=== PATIENT | female | born 1955 | race Caucasian/White ===

== ENCOUNTER 2017-12-07 09:50 | Emergency (ER) | payer OTHER ==
[~2017-12-07] VITALS: Ht 157.5 cm; Wt 61.0 kg
[~2017-12-07 09:50] MED LIST: AMLODIPINE5 MG PO; CALCIUM + D600 MG PO; CLARITIN10 M1 PO; D31000 UNIT PO; HYZAAR1 TAB PO; OMEPRAZOLE20 MG PO; PROVENTIL HFA IN
[2017-12-07 10:39] LABS: INFLUENZA A NONE DETECTED (NONE DETECT); INFLUENZA B NONE DETECTED (NONE DETECT)
[2017-12-07] MEDS ORDERED: CHERATUSSIN PO (10:52)
[2017-12-07] MEDS ORDERED: PROAIR HFA108 MCG/AC PO (10:52)
[2017-12-07] MEDS ORDERED: ZPAK PO (10:52)
[2017-12-07] MEDS ORDERED: PREDNISONE50 MG PO (10:52)
[2017-12-07 11:00] VITALS: BP 164/100
== END 2017-12-07 11:00 | disposition home or self-care (01) | DRG 203 ==
LOC: ED 09:50
PROVIDERS: Family Medicine
DX: J20.9 Acute bronchitis, unspecified (principal); I10 Essential (primary) hypertension; J45.909 Unspecified asthma, uncomplicated; M06.9 Rheumatoid arthritis, unspecified; M54.30 Sciatica, unspecified side; M81.0 Age-related osteoporosis without current pathological fracture; R05 Cough; R07.9 Chest pain, unspecified; R52 Pain, unspecified

== ENCOUNTER 2019-07-15 17:03 | Observation (INO) | payer OTHER ==
[~2019-07-15] VITALS: Ht 157.5 cm; Wt 61.0 kg
[~2019-07-15 17:03] MED LIST changes: +CHERATUSSIN PO; +PREDNISONE50 MG PO; +PROAIR HFA108 MCG/AC PO; +ZPAK PO
--- NOTE | 2019-07-15 17:26 | NUR ---
PT TO ROOM WITH A STEADY GAIT. PT DRY HEAVING IN TRIAGE.
--- NOTE | 2019-07-15 17:51 | NUR ---
Pt. moved to rm #[id number] for higher level of care. Report given to Fatimah Ordonez.
--- NOTE | 2019-07-15 18:35 | NUR ---
IV ACCESS OBTAINED, LABS DRAWN CULTURES OBTAINED AND PT RESTING AT THIS TIME, CALL JD CORRALES AND INSTRUCTED TO CALL FOR ANY NEEDED ASSISTANCE. ALL MONITORING EQUIPMENT EXPLAINED PRIOR TO APPLICATION, ALL QUESTIONS ANSWERED
[2019-07-15 18:43] LABS: HEMATOCRIT 41.2 % (37.0-47.0); HEMOGLOBIN 13.9 g/dl (12.0-16.0); IMMATURE GRANULOCYTES 0.4 % (0.0-5.0); MEAN CELL VOLUME 88.2 fL CALC (80.0-100.0); MEAN CORPUSCULAR HGB 29.8 pG CALC (26.0-32.0); MEAN CORPUSCULAR HGB CONC 33.7 g/L CALC (32.0-36.0); NEUT# 8.3 thou/uL (2.00-7.15); RED BLOOD COUNT 4.67 mill/uL (4.20-5.60); RED CELL DISTRI WIDTH 12.3 % (11.5-15.5)
[2019-07-15 18:58] LABS: ALBUMIN 4.7 g/dL (3.2-5.0); BUN 11 mg/dL (8-23); BUN/CREATININE RATIO 18 (12-20 (CALC)); CARBON DIOXIDE 25 mmol/l (22-30); CHLORIDE 95 mmol/l (95-108); CREATININE 0.6 mg/dL (0.5-1.0); GFR > 60 ML/MIN (>=60 (CALC)); GFR FOR AFR.AMER. > 60 ML/MIN (>=60 (CALC)); SODIUM 137 mmol/l (137-146); TOTAL PROTEIN 8.4 g/dL (6.3-8.2)
[2019-07-15 19:06] LABS: ALKALINE PHOSPHATASE 118 u/l (38-126); ANION GAP 20 (6-22 (CALC)); BILIRUBIN, TOTAL 0.4 mg/dL (0.0-1.4); POTASSIUM 2.6 mmol/l (3.5-5.1); SGOT/AST 82 u/l (9-36)
--- NOTE | 2019-07-15 21:20 | NUR ---
PT TO BE HELD IN ER MED/SURG IS CAPPED.
--- NOTE | 2019-07-15 22:15 | NUR ---
CONTACTED [facility] REGARDING CONFLICT ON SEP.
--- NOTE | 2019-07-15 22:25 | NUR ---
PLACED IN HOSPITAL BED. GIVEN ICE CHIPS.
--- NOTE | 2019-07-16 04:30 | NUR ---
SLEEPING IN NAD.
--- NOTE | 2019-07-16 06:00 | NUR ---
AMBULATED TO WITH NO PROBLEMS.
[2019-07-16 07:06] LABS: BUN 9 mg/dL (8-23); BUN/CREATININE RATIO 19 (12-20 (CALC)); CARBON DIOXIDE 26 mmol/l (22-30); CHLORIDE 100 mmol/l (95-108); CREATININE 0.5 mg/dL (0.5-1.0); GFR > 60 ML/MIN (>=60 (CALC)); GFR FOR AFR.AMER. > 60 ML/MIN (>=60 (CALC)); MAGNESIUM 1.9 mg/dL (1.6-2.3); SODIUM 139 mmol/l (137-146)
[2019-07-16 07:12] LABS: ANION GAP 16 (6-22 (CALC)); POTASSIUM 3.2 mmol/l (3.5-5.1)
[2019-07-16 07:47] VITALS: BP 144/79
--- NOTE | 2019-07-16 08:29 | NUR ---
PT RESTING IN BED AM ASSESSMENT COMPLETED SEE INTERVENTIONS, SKIN WARM AND DRY 2 UNIT PRBC'S INFUSING W/O ICNIDENT, PT SHOWS NO S/S OF DISTRESS, CALL ARGUETA WITHIN REACH, WILL CONTINUE TO MONITOR.
[2019-07-16 08:52] VITALS: BP 144/79
--- NOTE | 2019-07-16 10:05 | NUR ---
AMBULATED TO BATHROOM WND BACK WITH STEADY GAIT, OFFERS NO NEW COMPLAINTS.
--- NOTE | 2019-07-16 11:13 | NUR ---
SBAR PRINTED TO FLOOR
--- NOTE | 2019-07-16 11:25 | NUR ---
IN TO SEE PATIENT PLAN OF CARE DISCUSSED INCLDUING D/C HOME TODAY
[2019-07-16] MEDS ORDERED: MEDDOSEPAK PO (11:34)
[2019-07-16] MEDS ORDERED: TAM75CAP PO (11:35)
[2019-07-16] MEDS ORDERED: ZITHROMAX250 MG PO (11:36)
[2019-07-16] MEDS ORDERED: ROBITUSSIN AC10 ML PO (11:37)
--- NOTE | 2019-07-16 12:27 | NUR ---
IV ACCESS REMOVED EARLIER D/C INSTRUCTIONS DISCUSSED, SCRIPT FOR ROBITUSSIN WITH CODEINE GIVEN TO PATIENT. DRESSING SELF AT [facility]
--- NOTE | 2019-07-16 12:39 | NUR ---
Discharge instructions given. Patient verbalizes understanding of same. Discharged in stable condition via Ambulatory to Home with family. All belongings sent with pt. SCRIPT AND D/C INSTRUCTIONS IN HAND.
== END 2019-07-16 12:39 | disposition home or self-care (01) | DRG 195 ==
LOC: ED 17:03 → ED-I 17:40 → ED 17:40 → ED-I 19:50 → ED 20:03 → ED-I 20:04
PROVIDERS: Family Medicine; ADMIT Internal Medicine; ATTEND Internal Medicine
DX: J10.1 Influenza due to other identified influenza virus with other respiratory manifestations (principal); I10 Essential (primary) hypertension; J45.909 Unspecified asthma, uncomplicated; M06.9 Rheumatoid arthritis, unspecified; M19.90 Unspecified osteoarthritis, unspecified site

== ENCOUNTER 2019-09-17 | Emergency (ER) | payer OTHER ==
[~2019-09-17] MED LIST changes: +MEDDOSEPAK PO; +ROBITUSSIN AC10 ML PO; +TAM75CAP PO; +ZITHROMAX250 MG PO
[2019-09-17 14:24] LABS: IMMATURE GRANULOCYTES 0.6 % (0.0-5.0); MEAN CELL VOLUME 91.1 fL CALC (80.0-100.0); MEAN CORPUSCULAR HGB 30.4 pG CALC (26.0-32.0); MEAN CORPUSCULAR HGB CONC 33.3 g/L CALC (32.0-36.0); NEUT# 10.78 thou/uL (2.00-7.15); RED BLOOD COUNT 3.82 mill/uL (4.20-5.60); RED CELL DISTRI WIDTH 13.6 % (11.5-15.5)
[2019-09-17 14:30] LABS: HEMATOCRIT 34.8 % (37.0-47.0); HEMOGLOBIN 11.6 g/dl (12.0-16.0)
[2019-09-17 14:40] LABS: ALBUMIN 4.2 g/dL (3.2-5.0); ALKALINE PHOSPHATASE 76 u/l (38-126); ANION GAP 15 (6-22 (CALC)); BUN 18 mg/dL (8-23); BUN/CREATININE RATIO 26 (12-20 (CALC)); CARBON DIOXIDE 24 mmol/l (22-30); CHLORIDE 100 mmol/l (95-108); CREATININE 0.7 mg/dL (0.5-1.0); ETHYL ALCOHOL 0 mg/dl (0-30); GFR > 60 ML/MIN (>=60 (CALC)); GFR FOR AFR.AMER. > 60 ML/MIN (>=60 (CALC)); SGOT/AST 29 u/l (9-36); SODIUM 136 mmol/l (137-146); TOTAL PROTEIN 7.1 g/dL (6.3-8.2)
[2019-09-17 14:41] LABS: BILIRUBIN, TOTAL 0.8 mg/dL (0.0-1.4)
[2019-09-17 16:39] LABS: URINE BILIRUBIN - DIPSTICK NEGATIVE (NEGATIVE); URINE BLOOD DIPSTICK TRACE-INTACT (NEGATIVE); URINE COLOR YELLOW; URINE GLUCOSE - DIPSTICK NEGATIVE (NEGATIVE); URINE KETONE NEGATIVE (NEGATIVE); URINE LEUK ESTERASE NEGATIVE (NEGATIVE); URINE NITRITE - DIPSTICK NEGATIVE (Negative); URINE PROTEIN - DIPSTICK NEGATIVE (NEG-TRACE); URINE UROBILINOGEN - DIPSTICK 0.2 E.U./dL (0.2)
[2019-09-17 16:44] LABS: BARBITURATES NEGATIVE (NEGATIVE); COCAINE NEGATIVE (NEGATIVE); METHADONE NEGATIVE (NEGATIVE); OXCYCODONE NEGATIVE (NEGATIVE); TETRAHYDROCANNABIONOL POSITIVE (NEGATIVE); TRICYLIC ANTIDEPRESSANTS NEGATIVE (NEGATIVE)
[2019-09-17] MEDS ORDERED: POTASSIUM99 MG PO (17:11)
[2019-09-17] MEDS ORDERED: HYDROCHLOROTH12.5 M1 PO (17:11)
[2019-09-17] MEDS ORDERED: [UNRECOGNIZED DRUG - OTHER] XX (17:12)
== END 2019-09-17 18:40 | disposition home or self-care (01) ==
PROVIDERS: Emergency Medicine
DX: R55 Syncope and collapse (principal); E87.6 Hypokalemia; I10 Essential (primary) hypertension; M06.9 Rheumatoid arthritis, unspecified

== ENCOUNTER 2021-05-26 08:09 | Emergency (ER) | payer OTHER ==
[~2021-05-26] VITALS: Ht 157.5 cm; Wt 74.0 kg
[~2021-05-26 08:09] MED LIST changes: +HYDROCHLOROTH12.5 M1 PO; +POTASSIUM99 MG PO; +[UNRECOGNIZED DRUG - OTHER] XX
[2021-05-26 10:40] LABS: HEMATOCRIT 43.7 % (37.0-47.0); HEMOGLOBIN 14.6 g/dl (12.0-16.0); IMMATURE GRANULOCYTES 0.1 % (0.0-5.0); MEAN CELL VOLUME 89.5 fL CALC (80.0-100.0); MEAN CORPUSCULAR HGB 29.9 pG CALC (26.0-32.0); MEAN CORPUSCULAR HGB CONC 33.4 g/dL CAL (32.0-36.0); NEUT# 8.48 thou/uL (2.00-7.15); RED BLOOD COUNT 4.88 mill/uL (4.20-5.60); RED CELL DISTRI WIDTH 12.1 % (11.5-15.5)
[2021-05-26 10:42] LABS: ALBUMIN 4.7 g/dL (3.2-5.0); ALKALINE PHOSPHATASE 113 u/l (38-126); ANION GAP 12 (6-22 (CALC)); BUN 11 mg/dL (8-23); BUN/CREATININE RATIO 17 (12-20 (CALC)); CARBON DIOXIDE 31 mmol/l (22-30); CHLORIDE 102 mmol/l (95-108); CREATININE 0.7 mg/dL (0.5-1.0); GFR > 60 ML/MIN (>=60 (CALC)); GFR FOR AFR.AMER. > 60 ML/MIN (>=60 (CALC)); POTASSIUM 3.7 mmol/l (3.5-5.1); SGOT/AST 29 u/l (9-36); SODIUM 141 mmol/l (137-146); TOTAL PROTEIN 8.7 g/dL (6.3-8.2)
[2021-05-26 10:44] LABS: BILIRUBIN, TOTAL 0.9 mg/dL (0.0-1.4)
[2021-05-26] MEDS ORDERED: EPIPEN 2-P0.3 MG/0.3 IM (13:33)
[2021-05-26] MEDS ORDERED: AMOX/K CLAV875 M1 PO (13:33)
[2021-05-26] MEDS ORDERED: DECADRON6 MG PO (13:33)
[2021-05-26 14:25] VITALS: BP 133/67
== END 2021-05-26 14:25 | disposition home or self-care (01) ==
LOC: ED 08:09
PROVIDERS: Family Medicine
DX: T78.3XXA Angioneurotic edema, initial encounter (principal); I10 Essential (primary) hypertension; J45.909 Unspecified asthma, uncomplicated; M06.9 Rheumatoid arthritis, unspecified; Z20.822 Contact with and (suspected) exposure to COVID-19
CPT/HCPCS: Q9967

== ENCOUNTER 2022-04-21 09:31 | Emergency (ER) | payer MEDICARE, MEDICAID ==
[2022-04-21] VITALS (9 sets, daily range): BP systolic 144–162; BP diastolic 86–103
[~2022-04-21] VITALS: Ht 157.5 cm; Wt 65.0 kg
[~2022-04-21 09:31] MED LIST changes: +AMOX/K CLAV875 M1 PO; +DECADRON6 MG PO; +EPIPEN 2-P0.3 MG/0.3 IM
[2022-04-21] MEDS ORDERED: FLEXERIL5 M1 PO (13:09)
[2022-04-21] MEDS ORDERED: MOTRIN400 MG/TAB PO (13:09)
== END 2022-04-21 13:46 | disposition home or self-care (01) ==
LOC: ED 09:31
DX: M54.42 Lumbago with sciatica, left side (principal); I10 Essential (primary) hypertension; J45.909 Unspecified asthma, uncomplicated; M06.9 Rheumatoid arthritis, unspecified

== ENCOUNTER 2022-04-27 16:55 | Emergency (ER) | payer MEDICARE, MEDICAID ==
[~2022-04-27] VITALS: Ht 157.5 cm; Wt 64.8 kg
[~2022-04-27 16:55] MED LIST changes: +FLEXERIL5 M1 PO; +MOTRIN400 MG/TAB PO
[2022-04-27 17:31] VITALS: BP 155/90
[2022-04-27] MEDS ORDERED: VALACYCLOVIR HCL1 GM PO (17:44)
[2022-04-27] MEDS ORDERED: ZOFRAN4 MG/TAB PO (17:44)
[2022-04-27] MEDS ORDERED: TRAMADOL HYDROC50 M1 PO (17:45)
[2022-04-27 17:59] VITALS: BP 155/90
== END 2022-04-27 18:00 | disposition home or self-care (01) ==
LOC: ED 16:55
DX: B02.9 Zoster without complications (principal); I10 Essential (primary) hypertension; J45.909 Unspecified asthma, uncomplicated; M06.9 Rheumatoid arthritis, unspecified